=== PATIENT | female | born 1950 | race Caucasian/White ===

== ENCOUNTER 2016-09-29 15:40 | Emergency (ER) | payer BC ==
--- NOTE | 2016-09-29 15:59 | PDOC ---
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 The patient states that she was walking outside when she tripped and fell down, hitting her head. In the ED she complains of right eyebrow laceration. She denies any pain to the surrounding area. The patient denies any loss of consciousness, headache, or change in vision. She denies any recent illness, fever, chills, nausea, vomiting, diarrhea, or urinary symptoms. The patient reports that she is up to date on her tetanus vaccine. PCP: Binta Acosta <Britta Dubon - Last Filed: 09/29/16 17:07> - General Chief Complaint: Injury Stated Complaint: RIGHT EYBROW INJURY Time Seen by Provider: 09/29/16 15:58 Past History - Past Medical History Cardiac Disorders: Yes (ENDOCARDITIS) CVA: (TIA,) HTN: Yes - Psycho/Social/Smoking Cessation Hx Anxiety: Yes Suicidal Ideation: No Smoking Status: No Smoking History: Former smoker Have you smoked in the past 12 months: No Number of Cigarettes Smoked Daily: 20 'Breaking Loose' booklet given: 05/25/12 Hx Alcohol Use: Yes Drug/Substance Use Hx: No Substance Use Type: Alcohol Hx Substance Use Treatment: No <Yris Montana - Last Filed: 09/29/16 16:43> <Britta Dubon - Last Filed: 09/29/16 17:07> - Past Medical History Allergies/Adverse Reactions: Allergies Allergy/AdvReac Type Severity Reaction Status Date / Time No Known Allergies Allergy Verified 09/29/16 15:53 Home Medications: Ambulatory Orders Alprazolam [Xanax] 0.5 mg PO Q48H 11/11/14 Aspirin [ASA -] 81 mg PO DAILY 11/11/14 Enalapril Maleate [Vasotec -] 10 mg PO BID 11/11/14 Citalopram Hydrobromide [Citalopram HBr] 20 mg PO DAILY 09/29/16 Review of Systems - Review of Systems Able to Perform ROS?: Yes Comments:: 09/29/16 16:10 GENERAL/CONSTITUTIONAL: No fever or chills. No weakness. HEAD, EYES, EARS, NOSE AND THROAT: Present: right eyebrow laceration No change in vision. No ear pain or discharge. No sore throat. CARDIOVASCULAR: No chest pain or shortness of breath. RESPIRATORY: No cough, wheezing, or hemoptysis. GASTROINTESTINAL: No nausea, vomiting, diarrhea or constipation. GENITOURINARY: No dysuria, frequency, or change in urination. MUSCULOSKELETAL: No joint or muscle swelling or pain. No neck or back pain. SKIN: No rash NEUROLOGIC: No headache, vertigo, loss of consciousness, or change in strength/ sensation. ENDOCRINE: No increased thirst. No abnormal weight change. HEMATOLOGIC/LYMPHATIC: No anemia, easy bleeding, or history of blood clots. ALLERGIC/IMMUNOLOGIC: No hives or skin allergy. All Other Systems: Reviewed and Negative <Britta Dubon - Last Filed: 09/29/16 17:07> *Physical Exam - Physical Exam Comments: GENERAL: Awake, alert, and fully oriented, in no acute distress HEAD: Small superficial laceration with mild edema above the lateral edge of the R eyebrow. No active bleeding. No bony tenderness. EYES: PERRLA, EOMI, sclera anicteric, conjunctiva clear ENT: Auricles normal inspection, hearing grossly normal, nares patent, oropharynx clear without exudates. Moist mucosa NECK: Normal ROM, supple, no lymphadenopathy, JVD, or masses LUNGS: Breath sounds equal, clear to auscultation bilaterally. No wheezes, and no crackles HEART: Regular rate and rhythm, normal S1 and S2, no murmurs, rubs or gallops ABDOMEN: Soft, nontender, normoactive bowel sounds. No guarding, no rebound. No masses EXTREMITIES: Normal range of motion, no edema. No clubbing or cyanosis. No cords, erythema, or tenderness NEUROLOGICAL: Cranial nerves II through XII grossly intact. Normal speech, normal gait SKIN: Warm, Dry, normal turgor, no rashes or lesions noted. <Yris Montana - Last Filed: 09/29/16 16:43> - Vital Signs Last Vital Signs Temp Pulse Resp BP Pulse Ox 97.8 F 72 16 168/93 96 09/29/16 15:52 09/29/16 15:52 09/29/16 15:52 09/29/16 15:52 09/29/16 15:52 <Britta Dubon - Last Filed: 09/29/16 17:07> Procedures - Laceration/Wound Repair Right Face Wound Length: to 2.5 cm Wound Explored: clean, no foreign body present Wound's Depth, Shape: superficial, irregular, contused tissue Irrigated w/ Saline: Yes Wound Repaired With: Dermabond <Yris Montana - Last Filed: 09/29/16 16:43> ED Treatment Course - RADIOLOGY Radiograph Interpretation: 09/29/16 17:[address] as reviewed by Dr. Pollard reports no acute intracranial hemmorhage and no acute changes of the brain with no subdural or subarachnoid hemmorhage <Britta Dubon - Last Filed: 09/29/16 17:07> *DC/Admit/Observation/Transfer - Discharge Dispostion Admit: No <Yris Montana - Last Filed: 09/29/16 16:43> - Attestations Scribe Attestion: 09/29/16 16:11 Documentation prepared by Britta Dubon, acting as infertility medical assistant for Yris Montana MD. <Britta Dubon - Last Filed: 09/29/16 17:07> Diagnosis at time of Disposition: Laceration of forehead Qualifiers: Encounter type: initial encounter Qualified Code(s): S01.81XA - Laceration without foreign body of other part of head, initial encounter - Discharge Dispostion Disposition: HOME Condition at time of disposition: Stable - Referrals Referrals: Binta Acosta MD [Primary Care Provider] - - Patient Instructions Printed Discharge Instructions: DI for Laceration Repair With Dermabond, DI for Closed Head Injury Additional Instructions: IT IS OK TO GET THE DERMABOND WET. DO NOT APPLY ANY LOTIONS, CREAMS, OR SOAPS, THOUGH, IT MAY CAUSE IT TO FALL OFF TOO EARLY.
[2016-09-29 16:08] VITALS: BP 168/93; PULSE 72; TEMP 97.8; BMI 24.1
[2016-09-29] MEDS ORDERED: ACETAMINOPHEN 325 MG TABLET (FP) PO ONE (17:03)
[2016-09-29] MEDS ORDERED: ACETAMINOPHEN 325 MG TABLET (FP) ONE (17:04)
== END 2016-09-29 17:13 | disposition home or self-care (01) ==
LOC: FER 15:40
PROC: 0HQ1XZZ Repair Face Skin, External Approach (ICD-10-PCS; principal; 2016-09-29)
DX: S01.111A Laceration without foreign body of right eyelid and periocular area, initial encounter (principal); W18.30XA Fall on same level, unspecified, initial encounter; Y93.9 Activity, unspecified; Y92.9 Unspecified place or not applicable; Z86.73 Personal history of transient ischemic attack (TIA), and cerebral infarction without residual deficits; I10 Essential (primary) hypertension; Z87.891 Personal history of nicotine dependence; I38 Endocarditis, valve unspecified
CPT/HCPCS: 70450-TC; 99282-25

== ENCOUNTER 2020-09-08 06:43 | Day surgery (SDC) | payer BC, OTHER ==
[2020-09-08] MEDS ORDERED: CIPROFLOXACIN 0.3% EYE DROPS 5 ML BOTTLE ONE (06:59)
[2020-09-08] MEDS ORDERED: PHENYLEPHRINE 2.5% OPHTH SOLN 15 ML BOTTLE ONE (06:59)
[2020-09-08] MEDS ORDERED: TROPICAMIDE 1% OPHTH SOLN 15 ML BOTTLE ONE (06:59)
[2020-09-08] MEDS ORDERED: CYCLOPENTOLATE 2% OPHTH SOLN 2 ML BOTTLE ONE (06:59)
[2020-09-08 07:15] VITALS: BMI 25.0
[2020-09-08] MEDS ORDERED: TETRACAINE 0.5% OPHTH SOLN 2 ML BOTTLE ONE (07:18)
[2020-09-08] MEDS ORDERED: EPINEPHrine/PF 1 MG/1 ML (1:1,000) AMPULE ONE (07:18)
[2020-09-08] MEDS ORDERED: LIDOCAINE 1% P/F 10 MG/ML VIAL ONE (07:18)
[2020-09-08] MEDS ORDERED: BSS (NA/CA/MG/K) BALANCED SALT SOLUTION OPHTH SOLN 15 ML BOTTLE ONE (07:18)
[2020-09-08] MEDS ORDERED: NEO/POLYMYX B SULF/DEXAMETH OPHTHALMIC 5ML BOTTLE ONE (07:19)
[2020-09-08] MEDS ORDERED: CARBACHOL 0.01% INTRA-OCULAR 1.5 ML VIAL ONE (07:19)
[2020-09-08] MEDS ORDERED: MIDAZOLAM HCL 2 MG/2 ML SINGLE DOSE VIAL ONE ×2 (08:07→08:11)
[2020-09-08 08:57] VITALS: TEMP 97.7
[2020-09-08 09:15] VITALS: BP 122/65; PULSE 71
== END 2020-09-08 09:18 | disposition home or self-care (01) ==
LOC: FASU 06:43
PROVIDERS: ATTEND Ophthalmology
PROC: 08RK3JZ Replacement of Left Lens with Synthetic Substitute, Percutaneous Approach (ICD-10-PCS; principal; 2020-09-08 08:18)
DX: H26.8 Other specified cataract (principal)

== ENCOUNTER 2020-09-29 06:27 | Day surgery (SDC) | payer OTHER ==
[2020-09-23 09:47] VITALS: BMI 25.7
[2020-09-29] MEDS ORDERED: SUCCINYLCHOLINE CHLORIDE 200 MG/10 ML SYRINGE ONE (06:41)
[2020-09-29] MEDS ORDERED: LIDOCAINE HCL/PF 2% SDV 5ML VIAL ONE (06:43)
[2020-09-29] MEDS: PHENYLEPHRINE 2.5% OPHTH SOLN 15 ML BOTTLE ONE ×3 (07:00→07:10)
[2020-09-29] MEDS: CIPROFLOXACIN 0.3% EYE DROPS 5 ML BOTTLE ONE ×3 (07:00→07:10)
[2020-09-29] MEDS: CYCLOPENTOLATE 2% OPHTH SOLN 2 ML BOTTLE ONE ×3 (07:00→07:10)
[2020-09-29] MEDS: TROPICAMIDE 1% OPHTH SOLN 15 ML BOTTLE ONE ×3 (07:00→07:10)
[2020-09-29 07:07] VITALS: TEMP 98.3
[2020-09-29] MEDS ORDERED: EPINEPHrine/PF 1 MG/1 ML (1:1,000) AMPULE ONE (07:20)
[2020-09-29] MEDS ORDERED: LIDOCAINE 1% P/F 10 MG/ML VIAL ONE (07:20)
[2020-09-29] MEDS ORDERED: BSS (NA/CA/MG/K) BALANCED SALT SOLUTION OPHTH SOLN 15 ML BOTTLE ONE (07:20)
[2020-09-29] MEDS ORDERED: NEO/POLYMYX B SULF/DEXAMETH OPHTHALMIC 5ML BOTTLE ONE (07:20)
[2020-09-29] MEDS ORDERED: CARBACHOL 0.01% INTRA-OCULAR 1.5 ML VIAL ONE (07:20)
[2020-09-29] MEDS ORDERED: TETRACAINE 0.5% OPHTH SOLN 2 ML BOTTLE ONE (07:20)
[2020-09-29] MEDS ORDERED: MIDAZOLAM HCL 2 MG/2 ML SINGLE DOSE VIAL ONE ×2 (08:10→08:19)
[2020-09-29 08:49] VITALS: BP 132/81; PULSE 66
== END 2020-09-29 09:15 | disposition home or self-care (01) ==
LOC: FASU 06:27
PROVIDERS: ATTEND Ophthalmology
PROC: 08RJ3JZ Replacement of Right Lens with Synthetic Substitute, Percutaneous Approach (ICD-10-PCS; principal; 2020-09-29 08:17)
DX: H26.8 Other specified cataract (principal)